=== PATIENT | male | born 1990 | race American Indian/Alaskan Native ===

== ENCOUNTER 2017-04-17 19:11 | Emergency (ER) | payer SELFPAY ==
[2017-04-17] MEDS ORDERED: TYLENOL PO STA (20:16)
[2017-04-17] MEDS ORDERED: NACL 0.9% 500 ML 500 ML IV ONE (20:16)
[2017-04-17] MEDS ORDERED: TYLENOL ONE ×2 (20:20→23:11)
[2017-04-17 20:42] LABS: Basophils % (Auto) 0.1 % (0.0-1.8); Eosinophils # (Auto) 0.2 K/mm3 (0.0-0.4); Eosinophils % (Auto) 2.6 % (0.0-4.3); Hematocrit 42.2 % (35.5-45.6); Hemoglobin 13.6 gm/dl (11.8-15.2); Lymphocytes # (Auto) 0.5 K/mm3 (1.2-5.4); Lymphocytes % (Auto) 6.7 % (13.4-35.0); Mean Corpuscular HGB Conc 32 % (32-34); Mean Corpuscular Volume 80 fl (84-94); Monocytes # (Auto) 0.5 K/mm3 (0.0-0.8); Monocytes % (Auto) 7.7 % (0.0-7.3); Platelet Count 204 K/mm3 (140-440); Red Blood Count 5.26 M/mm3 (3.65-5.03); Red Cell Distribution Width 15.5 % (13.2-15.2)
[2017-04-17 20:43] LABS: Mean Corpuscular Hemoglobin 26 pg (28-32)
[2017-04-17 20:52] LABS: INR 0.99 (0.87-1.13)
[2017-04-17 20:55] LABS: Alanine Aminotransferase 7 units/L (7-56); Albumin 4.6 g/dL (3.9-5); BUN/Creatinine Ratio 8; Blood Urea Nitrogen 6 mg/dL (9-20); Calcium 9.4 mg/dL (8.4-10.2); Hemolysis Index 2
--- NOTE | 2017-04-17 21:13 | XRay Report ---
FINAL REPORT EXAM: XR CHEST 1V AP HISTORY: possible Sepsis TECHNIQUE: AP portable view of the chest PRIORS: None. FINDINGS: Lines, tubes, and devices: N/A Lungs and pleura: Trachea is normal in position. Lungs are clear of infiltrate, pleural effusion, vascular congestion, or pneumothorax. Cardiomediastinal silhouette: Cardiac and mediastinal silhouettes are unremarkable. Other: Bony structures are intact. IMPRESSION: No acute cardiopulmonary process seen.
[2017-04-17] MEDS ORDERED: NACL 0.9% 1000 ML 1,000 ML IV ONE (22:03)
[2017-04-17] MEDS ORDERED: GUAIFENESIN DM SYRUP PO ONE (22:03)
--- NOTE | 2017-04-17 22:43 | Emergency Department Report ---
HPI - General Chief Complaint: Fever Time Seen by Provider: 04/17/17 21:44 - HPI HPI: The patient is a 26-year-old male presents for evaluation of flulike symptoms. The patient reports 4 days of a mildly productive cough, intermittent waxing and waning fever, and moderate in severity achy chest pain, exacerbated with coughing, radiating to the back, present for the past 2 days. The patient denies fever, neck pain, parasthesias, dyspnea, hemoptysis, palpitations, dizziness, syncope, unilateral leg swelling, calf muscle pain. Patient also denies cocaine or other stimulant use, history of DVT or PE, recent immobilization, or history of cancer. ED Past Medical Hx - Past Medical History Previous Medical History?: Yes Hx Asthma: Yes - Surgical History Past Surgical History?: Yes Additional Surgical History: left foot surgery - Social History Smoking Status: Never Smoker Substance Use Type: Alcohol - Medications Home Medications: Home Medications Medication Instructions Recorded Confirmed Last Taken Type Azithromycin [Zithromax Z-STEPHANE] 250 mg PO QDAY #6 tablet 04/18/17 Unknown Rx Benzonatate [Tessalon Perles] 100 mg PO Q8HR #20 capsule 04/18/17 Unknown Rx Ibuprofen [Motrin] 800 mg PO Q8HR PRN #15 tablet 04/18/17 Unknown Rx traMADol [Ultram 50 MG tab] 50 mg PO Q6HR PRN #15 tablet 04/18/17 Unknown Rx ED Review of Systems ROS: Stated complaint: CHEST TIGHNESS,BACK PAIN, Other details as noted in HPI Constitutional: reports fever ENT: denies: throat or neck pain Respiratory: reports cough denies: shortness of breath Cardiovascular: reports chest pain Endocrine: denies unexplained weight loss or gain Gastrointestinal: denies: abdominal pain, nausea Genitourinary: denies: dysuria Musculoskeletal: denies: leg swelling Skin: denies: rash Neurological: denies: headache Hematological/Lymphatic: denies: easy bleeding or easy bruising Psych: denies sadness or hopelessness Physical Exam - Physical Exam Vital Signs: Vital Signs 04/17/17 20:12 Temperature 102.2 F H Pulse Rate 105 H Respiratory 20 Rate Blood Pressure 136/115 Blood Pressure 136/115 [Left] O2 Sat by Pulse 97 Oximetry Physical Exam: General: well-nourished, well-developed, no acute distress Head: Normocephalic, atraumatic Eyes: normal sclera ENT: Mucous membranes are pale and dry, bilateral nasal congestion present Neck: No neck stiffness, no cervical adenopathy Respiratory: Breath sounds equal bilaterally, no wheezing, rales, or rhonchi Cardio: S1 and S2 present, no murmurs, rubs, gallops, capillary refill is delayed Abdomen: Normoactive bowel sounds, soft abdomen, no rigidity, no guarding or rebound tenderness Musc: No pitting edema Skin: No rash Neuro: no facial drooping, normal speech Psych: Normal affect ED Course Vital Signs 04/17/17 20:12 Temperature 102.2 F H Pulse Rate 105 H Respiratory 20 Rate Blood Pressure 136/115 Blood Pressure 136/115 [Left] O2 Sat by Pulse 97 Oximetry ED Medical Decision Making - Lab Data Result diagrams: 04/17/17 20:24 04/17/17 20:24 - Medical Decision Making The patient was seen and examined by myself. The patient is placed on a campus monitor and continuous pulse ox. On initial evaluation, the patient was found to be in no distress. Evaluation orders were placed. EKG was negative for findings suggestive of acute cardiac infarct. The patient is given Tylenol for his fever, IV Toradol for his pain, cough medicine, and 1 L normal saline fluid bolus. Lab results were not concerning, including negative influenza screen and normal WBC. Chest x-ray is negative for pulmonary vessel congestion , pleural effusion, focal consolidation, or other acute cardio pulmonary disease process. The patient was reevaluated and reported that their symptoms were markedly improved. On reexamination the patient is found to have normal respiratory rate and O2 sat on pulse oximetry, with no costal retractions or diminishment of breath sounds on auscultation. The patient is stable for discharge with outpatient follow-up. The patient is given follow-up and return instructions. The patient expressed understanding and agreed with the plan. The patient is discharged in stable condition. Critical care attestation.: If time is entered above; I have spent that time in minutes in the direct care of this critically ill patient, excluding procedure time. ED Disposition Clinical Impression: Acute viral syndrome, Acute upper respiratory infection, Dehydration, Acute chest pain, Myalgia Disposition: TO HOME OR SELFCARE Is pt being admited?: No Does the pt Need Aspirin: No Condition: Stable Instructions: Chest Pain (ED), Costochondritis (ED), Upper Respiratory Infection (ED), Viral Syndrome (ED), Musculoskeletal Pain (ED) Referrals: PRIMARY CARE,MD [Primary Care Provider] - 3-5 Days Time of Disposition: 00:32
[2017-04-17] MEDS ORDERED: TORADOL IV ONE (22:44)
[2017-04-18] MEDS ORDERED: APRESOLINE IV ONE (00:13)
[2017-04-18] MEDS ORDERED: TYLENOL PO ONE (00:13)
[2017-04-18 00:38] VITALS: BP 114/59
== END 2017-04-18 01:42 | disposition home or self-care (01) ==
LOC: ED 19:11
DX: E86.0 Dehydration (principal); J06.9 Acute upper respiratory infection, unspecified; B34.9 Viral infection, unspecified; J45.909 Unspecified asthma, uncomplicated
CPT/HCPCS: 36415; 71045; 80053; 82140; 85025; 85610; 87400; 93005; 93010; 96361; 96374; 99284; J1885; J7030